=== PATIENT | female | born 1980 | race Caucasian/White ===

== ENCOUNTER 2022-09-21 18:46 | Emergency (ER) | payer MEDICAID ==
[~2022-09-21] VITALS: Ht 152.4 cm; Wt 125.6 kg
[2022-09-21] MEDS ORDERED: ACETAMINOPHEN TAB 650MG DOSE (2X325MG) PO ONE (20:05)
[2022-09-21 21:05] VITALS: BP 115/75
== END 2022-09-21 21:21 | disposition home or self-care (01) ==
LOC: M ED 18:46
DX: S63.92XA Sprain of unspecified part of left wrist and hand, initial encounter (principal); S60.222A Contusion of left hand, initial encounter; M54.50 Low back pain, unspecified; W01.0XXA Fall on same level from slipping, tripping and stumbling without subsequent striking against object, initial encounter

== ENCOUNTER → 2022-10-10 | Outpatient (CLI) | payer MEDICAID | LOC: M SOG 16:38 | PROVIDERS: ATTEND Orthopaedic Surgery Hand Surgery | DX: M79.645 Pain in left finger(s) (principal); M25.532 Pain in left wrist ==

== ENCOUNTER → 2022-10-24 | Outpatient (RCR) | payer MEDICAID | LOC: M OT 12:22 | PROVIDERS: ATTEND Orthopaedic Surgery Hand Surgery | DX: M25.532 Pain in left wrist (principal) ==

== ENCOUNTER 2022-11-02 15:15 | Outpatient (RCR) | payer MEDICAID, OTHER | END 2022-11-24 | LOC: M OT 15:15 | PROVIDERS: ATTEND Orthopaedic Surgery Hand Surgery | DX: M25.532 Pain in left wrist (principal) ==